=== PATIENT | female | born 1955 | race Caucasian/White ===

== ENCOUNTER → 2016-08-14 16:41 | Outpatient (CLI) | payer BC ==
[2014-12-17 07:56] VITALS: BMI 40.0
[~2016-08-14 16:41] MED LIST: CELEXA20 MG PO; PRILOSEC20 MG PO
== END | disposition home or self-care (01) ==
LOC: D.MAMMO 08:00
DX: Z12.31 Encounter for screening mammogram for malignant neoplasm of breast (principal)

== ENCOUNTER → 2017-08-15 16:26 | Outpatient (CLI) | payer OTHER ==
[2014-12-17 07:56] VITALS: BMI 40.0
== END | disposition home or self-care (01) ==
LOC: D.MAMMO 07-26 13:00
DX: Z12.31 Encounter for screening mammogram for malignant neoplasm of breast (principal)

== ENCOUNTER → 2017-11-20 16:59 | Outpatient (CLI) | payer OTHER ==
[2014-12-17 07:56] VITALS: BMI 40.0
[~2017-11-20 16:59] MED LIST changes: +BUPROPION XL150 MG PO; +ELIQUIS5 MG PO; +KEFLEX500 MG PO; +LEVAQUIN750 MG PO; +NAPROSYN500 MG PO; +NORCO 7.5/325 T1 TA1 PO; +OMEPRAZOLE PO; +ZANTAC150 MG PO; +ZOFRAN4 MG PO; +ZYRTEC10 MG PO
== END | disposition home or self-care (01) ==
LOC: D.CT 16:59
DX: R06.02 Shortness of breath (principal)

== ENCOUNTER 2017-11-20 18:55 | Inpatient (IN) | payer OTHER ==
[~2017-11-20] VITALS: Ht 170.2 cm; Wt 120.2 kg
--- NOTE | ~2017-11-20 | CN ---
PATIENT NAME:JSEENIA DENNISON MEDICAL RECORD: [id number] : 59 LOCATION:D. D.2102 ADMIT DATE: 11/20/17 ACCOUNT: [id number] CONSULTING PHYSICIAN: LEELEE BECKER MD REFERRING PHYSICIAN: RYNE HARRIS DO DATE OF CONSULTATION: 11/21/2017 REQUESTING PHYSICIAN: Dr. Ryne Harris. REASON FOR CONSULTATION: Pulmonary embolism, pleurisy, and atelectasis. HISTORY OF PRESENT ILLNESS: Ms. Dennison is a 61-year-old female who has a history of left upper extremity redness, swelling, and then she developed pleuritic type of chest pain. CT of the chest confirmed PE in the right lower lobe and also there was associated atelectasis. The patient denies any cough, no sputum production, no fever and chill. She says she is not very active, but there is no recent travel. No recent surgery. The patient denies any history of PE in the past. PAST MEDICAL HISTORY: 1. Obstructive sleep apnea. 2. Gastroesophageal reflux disease. 3. She is an ex-smoker. PAST SURGICAL HISTORY: 1. Cholecystectomy. 2. Hysterectomy. 3. Sinus surgery. 4. Ankle surgery. ALLERGIES: She is allergic to CHLORHEXIDINE. MEDICATIONS: On [employer] is reviewed. PERSONAL AND SOCIAL HISTORY: The patient is an ex-smoker. She is a nondrinker. FAMILY HISTORY: Noncontributory. PHYSICAL EXAMINATION: GENERAL: Now, the patient is lying comfortably. She is not in acute distress. VITAL SIGNS: The blood pressure is 117/66, pulse is 112, respirations 20, temperature 98.6, SPO2 is 94% on nasal cannula. HEENT: Conjunctivae are pink. Sclerae are not icteric. NECK: Supple, no JVD. CHEST: Excursion is minimal on both sides. Crackle at the right base. No wheezing. HEART: Rhythm regular, normal sound, no murmur. ABDOMEN: Soft, bowel sounds present. No hepatosplenomegaly. RECTAL: Deferred. EXTREMITIES: No cyanosis, no clubbing. There is no pedal edema. No calf tenderness. CENTRAL NERVOUS SYSTEM: The patient is awake and alert. There are no obvious cranial nerve abnormalities. The gait was not tested. Ultrasound of the lower extremity did not show any pulmonary embolism. The [facility] CONSULT REPORT [id number] SCOTT,JESENIA NOONER of the chest showed that she has a right lower lobe PE. There are bilateral lower lobe atelectasis, greater on the right than the left. OTHER LABORATORY DATA: CBC: The WBC is 5.9, hemoglobin 12.1, hematocrit 36.5, the platelet count is 209. Chemistry: Sodium 134, potassium 3.7, BUN is 13, creatinine 0.8. IMPRESSION: 1. Pulmonary embolism. 2. Atelectasis of bilateral lower lobes, right more than the left. 3. Pleurisy. 4. Gastroesophageal reflux disease. 5. Obstructive sleep apnea. 6. Ex-smoker. RECOMMENDATION: 1. Continue the Lovenox subq. I will change to oral agent after 3 days. 2. Hypercoagulable workup. 3. Pain control. 4. Follow up labs and chest radiograph. Dr. Harris, thank you for involving me in the care of Ms. Dennison. TRANSINT:[id number] Voice Confirmation ID: [id number] DOCUMENT ID: [id number] LEELEE BECKER MD at 1110 CC: [id number] DICTATION DATE: 11/21/17 1603 BALLET TEACHER: 11/21/17 1629 DIS IN 11/23/17 [id number] [place] [address]
[~2017-11-20 18:55] MED LIST changes: -BUPROPION XL150 MG PO; -ELIQUIS5 MG PO; -KEFLEX500 MG PO; -LEVAQUIN750 MG PO; -NAPROSYN500 MG PO; -NORCO 7.5/325 T1 TA1 PO; -OMEPRAZOLE PO; -ZANTAC150 MG PO; -ZOFRAN4 MG PO; -ZYRTEC10 MG PO
[2017-11-20 20:12] LABS: APTT 30.8 SECONDS (22.8-39.4); INR 1.09 (0.85-1.17); PROTIME 13.7 SECONDS (11.6-15.0)
[2017-11-20 20:26] LABS: D-DIMER-QUANTITATIVE 3.89 ug/mLFEU (0.20-0.54)
[2017-11-21] VITALS: BP 162/96
[2017-11-21 04:00] VITALS: BP 117/66
[2017-11-21 07:06] LABS: HEMATOCRIT 36.5 % (36.0-48.0); HEMOGLOBIN 12.1 g/dL (12-16); MCH 29.3 pg (26.0-34.0); MCHC 33.2 g/dL (31.0-37.0); MCV 88.4 fL (80.0-100.0); MEAN PLATELET VOLUME 8.5 fL (7.4-10.4); PLATELET COUNT 209 10x3/uL (130-400); RBC 4.13 10x6/uL (4.00-5.40); WBC 5.9 10x3/uL (4.8-10.8)
[2017-11-21 07:08] LABS: CALC OSMOLALITY 267 mosm/kg (275-300); CALCIUM 8.7 mg/dL (8.5-10.1); CHLORIDE - SERUM 100 mmol/L (98-107); CREATININE - SERUM 0.8 mg/dL (0.6-1.3); GLUCOSE 99 mg/dL (74-106); POTASSIUM - SERUM 3.7 mmol/L (3.5-5.1); SODIUM 134 mmol/L (136-145); UREA NITROGEN 13 mg/dL (7-18); eGFR NON AFRICAN AMERICAN 78 mL/min (90-120)
[2017-11-21 07:24] VITALS: Ht 170.2 cm; Wt 120.2 kg
[2017-11-21] MEDS ORDERED: NAPROSYN500 MG PO (07:47)
[2017-11-21] MEDS ORDERED: KEFLEX500 MG PO (07:48)
[2017-11-21] MEDS ORDERED: ZANTAC150 MG PO (07:49)
[2017-11-21] MEDS ORDERED: OMEPRAZOLE PO (07:52)
[2017-11-21] MEDS ORDERED: BUPROPION XL150 MG PO (07:53)
[2017-11-21] MEDS ORDERED: ZYRTEC10 MG PO (07:54)
[2017-11-21 08:04] LABS: ANISOCYTOSIS OCC; EOSINOPHILS 2 % (0-7); LYMPHOCYTES 49 % (15-50); MONOCYTES 13 % (2-11); NEUTROPHILS 35 % (40-80); PLATELET ESTIMATE NORMAL
[2017-11-21 09:28] VITALS: BP 156/82
[2017-11-21 12:30] VITALS: BP 132/72
[2017-11-21 16:10] VITALS: BP 156/86
[2017-11-21 20:00] VITALS: BP 148/76
[2017-11-22] VITALS: BP 138/72
[2017-11-22 04:27] LABS: BASOPHILS 0.2 % (0-2); EOSINOPHILS 3.2 % (0-7); HEMATOCRIT 34.2 % (36.0-48.0); HEMOGLOBIN 12.1 g/dL (12-16); IMMATURE GRANULOCYTES 0.5 % (0-5); LYMPHOCYTES 56.9 % (15-50); MCH 31.2 pg (26.0-34.0); MCHC 35.4 g/dL (31.0-37.0); MCV 88.1 fL (80.0-100.0); MEAN PLATELET VOLUME 8.5 fL (7.4-10.4); MONOCYTES 10.5 % (2-11); NEUTROPHILS 28.7 % (40-80); PLATELET COUNT 191 10x3/uL (130-400); RBC 3.88 10x6/uL (4.00-5.40); RDW 13.7 % (11.5-14.5); WBC 5.6 10x3/uL (4.8-10.8)
[2017-11-22 04:52] LABS: ALBUMIN 2.6 g/dL (3.4-5.0); ALKALINE PHOSPHATASE 90 U/L (46-116); ALT (SGPT) 33 U/L (10-68); CALC OSMOLALITY 267 mosm/kg (275-300); CALCIUM 8.5 mg/dL (8.5-10.1); CHLORIDE - SERUM 100 mmol/L (98-107); CREATININE - SERUM 0.7 mg/dL (0.6-1.3); GLUCOSE 101 mg/dL (74-106); POTASSIUM - SERUM 3.7 mmol/L (3.5-5.1); PROTEIN - SERUM 7.6 g/dL (6.4-8.2); SODIUM 134 mmol/L (136-145); UREA NITROGEN 12 mg/dL (7-18); eGFR NON AFRICAN AMERICAN > 90 mL/min (90-120)
[2017-11-22 09:23] VITALS: BP 162/78
[2017-11-22 11:50] VITALS: BP 132/72
[2017-11-22 15:24] LABS: ACLA - IGG AB <9 GPL U/mL (0-14); ACLA - IGM AB 17 MPL U/mL (0-12)
[2017-11-22 21:37] VITALS: BP 138/76
[2017-11-22 22:12] LABS: ANA REFLEX - DIRECT Negative (Negative)
[2017-11-23 01:32] VITALS: BP 130/70
[2017-11-23 06:11] VITALS: BP 138/70
[2017-11-23] MEDS ORDERED: ELIQUIS5 MG PO (08:02)
[2017-11-23] MEDS ORDERED: ZOFRAN4 MG PO (08:02)
[2017-11-23] MEDS ORDERED: LEVAQUIN750 MG PO (08:03)
[2017-11-23] MEDS ORDERED: NORCO 7.5/325 T1 TA1 PO (08:03)
[2017-11-23 09:07] VITALS: BP 118/70
[2017-11-23 15:12] LABS: PROTEIN S - FREE 116 % (57-157); PROTEIN S - FUNCTIONAL 65 % (63-140); PROTEIN S - TOTAL 149 % (60-150)
[2017-11-23 16:09] LABS: LUPUS - INTERPRETATION Comment: (()); LUPUS - THROMBIN TIME 14.8 sec (0.0-23.0); LUPUS - dRVVT 39.5 sec (0.0-47.0); PTT-LA 21.7 sec (0.0-51.9)
[2017-11-26 12:13] LABS: CEA 0.7 ng/mL (0.0-4.7)
[2017-11-26 22:05] LABS: ANTITHROMBIN III ACTIVITY 95 % (75-135); PLASMINOGEN ACTIVITY 141 % (70-150)
[2017-11-29 14:16] LABS: MITOCHONDRIAL ANTIBODY 7.6 Units (0.0-20.0)
[2017-12-01 14:11] LABS: PROTEIN C - ANTIGEN 121 % (60-150); PROTEIN C - FUNCTIONAL 127 % (73-180)
[2017-12-04 03:11] LABS: FACTOR II DNA ANALYSIS Negative (())
== END 2017-11-23 10:54 | disposition home or self-care (01) | DRG 299 ==
LOC: D.M2 18:55
PROVIDERS: Family Medicine; Internal Medicine Hematology & Oncology
DX: I82.622 Acute embolism and thrombosis of deep veins of left upper extremity (principal); I26.99 Other pulmonary embolism without acute cor pulmonale; G47.33 Obstructive sleep apnea (adult) (pediatric); K21.9 Gastro-esophageal reflux disease without esophagitis; Z87.891 Personal history of nicotine dependence

== ENCOUNTER 2018-04-02 11:31 | Inpatient (IN) | payer OTHER ==
[~2018-04-02] VITALS: Ht 170.2 cm; Wt 116.4 kg
--- NOTE | ~2018-04-02 | MORECARE ---
CASE MANAGEMENT DISCHARGE SUMMARY PATIENT: JESENIA CHAVEZ UNIT: [id number] ADM DATE: 04/02/18 AGE: 62 : 59 SEX: F ROOM/BED: D.2212 AUTHOR: LUIS M HILL PHYSICIAN: REFERRING PHYSICIAN: FLAKITO SALAZAR MD DATE OF SERVICE: 04/04/18 Discharge Plan Patient Name: JESENIA CHAVEZ [facility] 1955 Planned Disposition: Anticipated Discharge Date: Discharge Date: 04/03/2018 Expected LOS: 0 Initial Reviewer: [email or web address] Initial Review Date: 04/04/2018 Generated: 04/04/18 5:24 pm Patient Name: JESENIA CHAVEZ Page [id number] at 1625 All edits/amendments must be made on the electronic document DICTATION DATE: 04/04/181623 BRICK OR BLOCK MAKER: EDY 04/04/181623 RPT#: [id number] DC DATE:04/03/18 STATUS: DIS IN [facility] [address] [place] [address] END OF REPORT
--- NOTE | ~2018-04-02 | HP ---
PATIENT: JESENIA CHAVEZ MEDICAL RECORD: [id number] ACCOUNT: [id number] LOCATION:D.MS [id number] : 59 ADMISSION DATE: 04/02/18 PCP: FLAKITO SALAZAR MD HISTORY AND PHYSICAL EXAMINATION DATE OF ADMISSION: 04/02/2018 CHIEF COMPLAINT: Excessive fatigue, headaches, and low-grade fever for the past 3 days. HISTORY OF PRESENT ILLNESS: The patient is a 62-year-old female who, earlier this year, had been diagnosed with pulmonary embolus. She has been treated with Eliquis 5 mg b.i.d. She states, over the past couple of weeks, she has had some shortness of breath, had no energy, and presents for followup today. Approximately 2 weeks ago, the patient did have sinusitis. She states she has not recovered. She still feels extremely fatigued. PAST MEDICAL HISTORY: Significant in that she is G4, P4. PAST SURGICAL HISTORY: She has had a hysterectomy. She had ethmoid sinus surgery times 2. She has had a pilonidal cyst removed. Also had left foot fracture with screws placed in 2013. FAMILY HISTORY: Father of substance abuse. The patient was adopted. ALLERGIES: She has no known drug allergies. MEDICATIONS: Include Wellbutrin 150 mg once a day, Eliquis 5 mg p.o. b.i.d., and omeprazole 20 mg once a day. SOCIAL HISTORY: The patient lives in [place]. She is a mother of 4. She is a 4-year college graduate. 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 She is currently . HABITS: She is a former smoker, stopped in 2006. No alcohol use. REVIEW OF SYSTEMS: CONSTITUTIONAL: She denies any headache, seizure, or syncope. She denies change in vision or auditory acuity. PULMONARY: She has had a mild cough. She has had some increasing shortness of breath. CARDIOVASCULAR: She has had no chest pain, palpitation, PND, or orthopnea. GASTROINTESTINAL: No chronic nausea, vomiting, melena, or hematochezia. GENITOURINARY: No urgency, frequency, or dysuria. PHYSICAL EXAMINATION: VITAL SIGNS: The patient's pulse was 104. Her O2 sat was 96%, respirations were 16, and temperature was 97.4. Her weight was 256. Blood pressure 126/70. HEENT: Unremarkable. NECK: Supple. There is no adenopathy. HEART: Slightly tachycardic. LUNGS: Clear. ABDOMEN: Soft. Bowel sounds are positive. No organomegaly. EXTREMITIES: No edema can be appreciated in upper or lower extremities. HISTORY AND PHYSICAL [id number] JESENIA CHAVEZ LABORATORY DATA: She had white count elevated at 39,000 with hemoglobin of 9.5, hematocrit was 28.2, and her platelets were 107. This was repeated. She had a urinalysis showing 1+ bilirubin, pH 5.5, no leukocytes, no red blood cells, and 1+ protein. Case was discussed with Dr. Hoang Ibarra, her online producer/oncologist. ASSESSMENT: Leukocytosis, anemia, acute thrombopenia, history of pulmonary embolus. PLAN: The patient will be admitted. We will get a CT with contrast to rule out any further pulmonary embolus. Also, we will get CBC with differential and peripheral smear. We will also get ABGs on the patient. Most likely, the patient will need bone marrow biopsy in the near future. We will also have blood cultures. We will cover the patient with empiric antibiotics. Continue to follow this. TRANSINT:[id number] Voice Confirmation ID: [id number] DOCUMENT ID: [id number] FLAKITO SALAZAR MD at 0750 CC: [id number] DICTATION DATE: 04/02/181728 MEDICAL RECORDS DIRECTOR: 04/02/18 1856 DIS IN 04/03/18 [address] [place] [address]
[~2018-04-02 11:31] MED LIST changes: +BUPROPION XL150 MG PO; +ELIQUIS5 MG PO; +KEFLEX500 MG PO; +LEVAQUIN750 MG PO; +NAPROSYN500 MG PO; +NORCO 7.5/325 T1 TA1 PO; +OMEPRAZOLE PO; +ZANTAC150 MG PO; +ZOFRAN4 MG PO; +ZYRTEC10 MG PO
[2018-04-02 14:26] LABS: HEMATOCRIT 26.5 % (36.0-48.0); HEMOGLOBIN 8.7 g/dL (12-16); MCH 31.8 pg (26.0-34.0); MCHC 32.8 g/dL (31.0-37.0); MCV 96.7 fL (80.0-100.0); MEAN PLATELET VOLUME 8.5 fL (7.4-10.4); PLATELET COUNT 76 10x3/uL (130-400); RBC 2.74 10x6/uL (4.00-5.40); RDW 16.4 % (11.5-14.5); WBC 31.9 10x3/uL (4.8-10.8)
[2018-04-02 14:34] LABS: % SATURATION 39 % (15-55); IRON 133 ug/dl (35-150); TOTAL IRON BIND CAPACITY 339 ug/dl (260-445); UNSAT IRON BIND CAPACITY 206 ug/dl (150-375)
[2018-04-02 14:37] LABS: ALBUMIN 3.1 g/dL (3.4-5.0); ANION GAP 12.8 mmol/L (8-16); BILIRUBIN - TOTAL 0.36 mg/dL (0.2-1.3); CALCIUM 8.7 mg/dL (8.5-10.1); CARBON DIOXIDE 26.2 mmol/L (21.0-32.0); CREATININE - SERUM 0.9 mg/dL (0.6-1.3); PROTEIN - SERUM 7.6 g/dL (6.4-8.2)
[2018-04-02 15:44] VITALS: BP 156/79; BMI 40.2
[2018-04-02 16:12] LABS: EOSINOPHILS 1 % (0-7); LYMPHOCYTES 93 % (15-50); NEUTROPHILS 2 % (40-80)
[2018-04-02 16:13] LABS: ELLIPTOCYTES 1+; PLATELET ESTIMATE DECREASED
[2018-04-02 17:45] VITALS: BP 152/73
[2018-04-02 18:22] VITALS: Ht 170.2 cm; Wt 116.4 kg
[2018-04-02 20:12] VITALS: BP 147/61
[2018-04-03] VITALS (20 sets, daily range): BP systolic 114–158; BP diastolic 56–81
[2018-04-03 05:46] LABS: ALKALINE PHOSPHATASE 54 U/L (46-116); ALT (SGPT) 27 U/L (10-68); BILIRUBIN - TOTAL 0.34 mg/dL (0.2-1.3); CALC OSMOLALITY 274 mosm/kg (275-300); CALCIUM 8.7 mg/dL (8.5-10.1); CARBON DIOXIDE 27.2 mmol/L (21.0-32.0); CHLORIDE - SERUM 103 mmol/L (98-107); CREATININE - SERUM 0.8 mg/dL (0.6-1.3); GLUCOSE 96 mg/dL (74-106); POTASSIUM - SERUM 3.9 mmol/L (3.5-5.1); PROTEIN - SERUM 6.9 g/dL (6.4-8.2); SODIUM 138 mmol/L (136-145); UREA NITROGEN 11 mg/dL (7-18); eGFR NON AFRICAN AMERICAN 77 mL/min (90-120)
[2018-04-03 06:14] LABS: FOLATE (FOLIC ACID) - SERUM 11.6 ng/mL (>3.0)
[2018-04-03 06:30] LABS: HEMATOCRIT 24.6 % (36.0-48.0); MCH 31.7 pg (26.0-34.0); MCHC 32.5 g/dL (31.0-37.0); MCV 97.6 fL (80.0-100.0); MEAN PLATELET VOLUME 8.2 fL (7.4-10.4); PLATELET COUNT 71 10x3/uL (130-400); RBC 2.52 10x6/uL (4.00-5.40); RDW 16.5 % (11.5-14.5); WBC 30.7 10x3/uL (4.8-10.8)
[2018-04-03 07:14] LABS: LYMPHOCYTES 84 % (15-50); MONOCYTES 5 % (2-11); NEUTROPHILS 4 % (40-80); PLATELET ESTIMATE DECREASED
[2018-04-03 07:15] LABS: ANISOCYTOSIS OCC; HYPOCHROMASIA OCC; SMUDGE CELLS OCC; SPHEROCYTES OCC
[2018-04-03] MEDS ORDERED: ANUSOL-HC 2.5%30 GM RC (09:12)
[2018-04-03] MEDS ORDERED: CEFUROXIME250 MG PO (09:12)
[2018-04-03] MEDS ORDERED: VALIUM 2 MG TAB2 MG PO (09:12)
[2018-04-03 12:55] LABS: APPEARANCE CLEAR (CLEAR); BILIRUBIN NEGATIVE (NEGATIVE); COLOR YELLOW (YELLOW); GLUCOSE NEGATIVE (NEGATIVE); KETONE NEGATIVE (NEGATIVE); NITRITE NEGATIVE (NEGATIVE); PROTEIN NEGATIVE (NEGATIVE); UROBILINOGEN NORMAL (NORMAL)
[2018-04-05 05:09] LABS: IMMUNOGLOBULIN A 255 mg/dL (87-352); IMMUNOGLOBULIN G 914 mg/dL (700-1600)
[2018-04-07 08:08] LABS: IMMUNOGLOBULIN E 14 IU/mL (0-100)
== END 2018-04-03 21:02 | disposition home or self-care (01) | DRG 836 ==
LOC: D.MS 11:31
PROVIDERS: Family Medicine; Internal Medicine Hematology & Oncology
DX: C92.00 Acute myeloblastic leukemia, not having achieved remission (principal); D69.6 Thrombocytopenia, unspecified; K21.9 Gastro-esophageal reflux disease without esophagitis